=== PATIENT | female | born 1950 | race Caucasian/White ===

== ENCOUNTER → 2020-08-05 | Outpatient (CLI) | payer MEDICARE, OTHER ==
[~2020-08-05] MED LIST: COZAAR 25 MG TA25 M1 PO; HYDROCHLOROTHIA25 M1 PO; LIPITOR80 MG PO; METFORMIN HCL500 M3 PO; TOPROL XL50 MG PO
--- NOTE | 2020-08-05 16:46 | CARDNUC ---
[place] [address] CARDIAC NUCLEAR IMAGING REPORT Name: MERARI SALVADOR Room: [facility]#: [id number] Admission: 08/05/20 Attend Phys: Janey Hazel Discharge: Date of : 46 Date of Service: 08/05/20 1646 Report #: [id number] THIS REPORT FOR: cc: Mechelle Sherman. Mechelle Wallace. Ruben Ortiz MD [facility] ~ APPROVED REPORT Study performed: 08/05/2020 14:16:51 Exam: Nuclear Stress Test Indication: surgery clearance, s/p AR/PCI, HTN. Patient Location: Out-Patient Stress Tech: [address] Stress Nurse: Rebecca Vela R.N. Ht: 5 ft 5 in Wt: 170 lbs BSA: 1.85 m2 BMI: 28.28 Medical History Medical History: CAD s/p AR, CAD s/p stent,thyroid cancer, HTN, HLD, DM II, past smoker, FHX CAD, surgical clearance for Hip replacement - difficulty ambulating, Wheelchair user. Medications: Atorvastatin, HCTZ, Metoprolol Succ. Metformin, Losartan. Allergies: No known drug allergies Cardiac Risk Factors: Age, Past Smoker, DM, FHX of CAD, HTN, Hyperlipidemia. Previous Cardiac Procedures: Myocardial infarction, PCI. Pretest Chest Pain Characteristics: No chest pain Exercise History: Sedentary Physical Disabilities: Wheelchair user, Hip pain - pending Hip replacement, difficulty walking. Meds Held (24 hrs): Metoprolol Succ. Stress Test Details Stress Test: Pharmacologic stress testing performed using 0.4 mg of regadenoson per 5 mL given IV over 10 seconds. Reason for pharmacologic stress test: Wheelchair user, Hip pain - pending Hip replacement, difficulty walking.. HR Resting HR: 62 bpm Max Heart Rate (APMHR): 148 bpm Max HR Achieved: 113 bpm Target HR (85% APMHR): 125 [place] [address] CARDIAC NUCLEAR IMAGING REPORT Name: MADELEINEMERARI M Room: [facility]#: [id number] Admission: 08/05/20 Attend Phys: Janey Hazel Discharge: Date of : 46 Date of Service: 08/05/20 1646 Report #: [id number] % of APMHR: 76 Recovery HR: 88 bpm BP Resting BP: 127/73 mmHg Max BP: 104/50 mmHg ECG Resting ECG: Sinus Rhythm Stress ECG: Sinus Tachycardia ST Change: None Arrhythmia: None Recovery ECG: Sinus Rhythm Recovery ST Change: None Recovery Arrhythmia: None Clinical Reason for Termination: Completed protocol Stress Symptoms: Nausea, SOA, lightheadedness. Exercise duration: 00 min 00 sec Exercise capacity: 1.00 METs The patient tolerated Lexiscan infusion without significant cardiac symptoms. Nurse Comments A 70 year old female presented in a wheelchair for a sitting Lexiscan Nuclear Stress Test. Test well tolerated. Recovery unremarkable. Patient was stable and stated she felt good when escorted via wheelchair to Nuclear Medicine for imaging. Stress ECG Conclusion The baseline twelve-lead EKG shows sinus rhythm without significant ST segment or T wave abnormality. EKG obtained during and post Lexiscan infusion shows sinus rhythm and sinus tachycardia with no significant ST segment or T wave changes when compared to baseline. There were no stress-induced arrhythmias. NM EXAM: Myocardial Perfusion REST/STRESS Imaging Protocol: Rest Tc-99m/Stress Tc-99m 1 day Resting Data Rest SPECT myocardial perfusion imaging was performed in supine position 30 minutes following the intravenous injection of 10.2 mCi of Tc-99m Sestamibi. Time of rest injection: 12:50 The images were gated to evaluate regional wall motion [place] [address] CARDIAC NUCLEAR IMAGING REPORT Name: MERARI SALVADOR Room: [facility]#: [id number] Admission: 08/05/20 Attend Phys: Janey Hazel Discharge: Date of : 46 Date of Service: 08/05/20 1646 Report #: [id number] left ventricular ejection fraction. Administration Route: IV Administration Site: Right Wrist Pharmacologic Stress Pharmacologic stress test was performed by injecting Regadenoson 0.4 mg IV push followed by the intravenous injection of 34.5 mCi of Tc-99m Sestamibi. Time of stress injection: 14:30 Administration Route: IV Administration Site: Right Wrist Heart Rate at time of stress injection: 113 bpm. Gated Stress SPECT was performed 40 minutes after stress injection. The images were gated to evaluate regional wall motion and calculate left ventricular ejection fraction. Prone imaging was performed. Study Quality Study: Good Artifact: No artifact Study Data At rest, the left ventricular ejection fraction was 64%.. Post stress, the left ventricular ejection was 76%.. TID = 1.00. Perfusion Perfusion images obtained at rest and post Lexiscan stress showed uniform uptake of the radioisotope throughout the myocardium. There were no defects to suggest infarct or ischemia. Wall Motion Normal left ventricular wall motion. Nuclear Conclusion ECG Findings: negative for ischemia Clinical Findings: negative for ischemia Nuclear Findings: negative for ischemia Exercise Capacity: not assessed Left Ventricular Function: normal Risk Study: low Myocardial perfusion images show no defect to suggest infarct or ischemia. Left ventricular systolic function appears normal on gated studies. This is [place] [address] CARDIAC NUCLEAR IMAGING REPORT Name: MERARI SALVADOR Room: [facility]#: [id number] Admission: 08/05/20 Attend Phys: Janey Hazel Discharge: Date of : 46 Date of Service: 08/05/20 1646 Report #: [id number] <Conclusion> The baseline twelve-lead EKG shows sinus rhythm without significant ST segment or T wave abnormality. EKG obtained during and post Lexiscan infusion shows sinus rhythm and sinus tachycardia with no significant ST segment or T wave changes when compared to baseline. There were no stress-induced arrhythmias. <ELECTRONICALLY SIGNED> By: Ruben Khoury MD, [facility] 08/05/20 1646 45 45 Ruben Khoury MD, FAC /INF
== END ==
LOC: M.NUC 12:03 → M.CRD 08-06 08:00
PROVIDERS: ATTEND Internal Medicine
DX: I25.10 Atherosclerotic heart disease of native coronary artery without angina pectoris (principal); I25.2 Old myocardial infarction; E11.9 Type 2 diabetes mellitus without complications